=== PATIENT | female | born 1960 | race Hispanic/Latino ===

== ENCOUNTER → 2024-09-02 | Outpatient (CLI) | payer MEDICARE ==
[~2024-09-02] MED LIST: ondanSETRON 4MG INJ ONE
--- NOTE | 2024-09-02 16:21 | HMCIMG ---
MR SHOULDER RIGHT WO REASON: M25.511 Pain in right shoulder COMPARISON: None TECHNIQUE: Routine imaging protocol was performed in the axial, oblique sagittal and oblique coronal plane with T1, proton density, T2 and gradient recalled sequences. FINDINGS: There is severe AC joint degenerative changes. There is a large inferiorly directed osteophyte. There is marked thickening and inflammation of the musculotendinous portion of the rotator cuff. There is also a focal full-thickness tear present, not distracted. There are marked degenerative changes in the glenohumeral joint space evidenced by loss of articular cartilage in by subchondral cyst formation. There is no joint effusion. Biceps tendon appears unremarkable. There are no other focal osseous lesions. IMPRESSION: 1. Marked AC joint degenerative changes with an inferiorly directed ossified. 2. Marked thickening of the muscular tendinous portion of the rotator cuff, with increased signal consistent with tendinitis, there is also a full-thickness not distracted tear. 3. Marked glenohumeral joint space osteoarthritis as well.
== END | disposition home or self-care (01) ==
LOC: RAH 13:57
PROVIDERS: ATTEND Physician Assistant
DX: M19.011 Primary osteoarthritis, right shoulder (principal); M75.111 Incomplete rotator cuff tear or rupture of right shoulder, not specified as traumatic; M77.8 Other enthesopathies, not elsewhere classified
CPT/HCPCS: 73221; J2405

== ENCOUNTER 2025-05-12 06:52 | Day surgery (SDC) | payer MEDICARE ==
[2025-05-10 14:48] LABS: IMMATURE GRANULOCYTE ABSOLUTE 0.02 K/uL (0-1); NUCLEATED RED BLOOD CELLS 0.0 % (0.0-0.19); PLATELET COUNT (AUTO) 210 K/uL (130-400); RED BLOOD CELL COUNT(AUTO) 4.00 MIL/uL (4.00-5.50); RED CELL DISTRIBUTION WIDTH 13.2 % (11.0-15.5); WHITE BLOOD COUNT (AUTO) 5.9 K/uL (4.8-10.8)
[2025-05-10 14:56] LABS: APPEARANCE,URINE CLEAR (CLEAR); GLUCOSE, URINE (UA) NEGATIVE (NEGATIVE); LEUKOCYTE ESTERASE ,URINE NEGATIVE Leu/uL (NEGATIVE); NITRATE,URINE NEGATIVE (NEGATIVE); OCCULT BLOOD,URINE NEGATIVE (NEGATIVE)
[2025-05-10 15:02] LABS: CREATININE 0.6 mg/dL (0.5-1.0); GLOMERULAR FILTR. RATE CALC 98.0 mL/min (>90); GLUCOSE,RANDOM 135.0 mg/dL (70-105); SODIUM SERUM 140.0 mmol/L (136-145); UREA NITROGEN, BLOOD 14.0 mg/dL (7-18)
[2025-05-10 15:02] LABS: ADD UA MICROSCOPIC NO
[2025-05-10 15:34] LABS: INR 0.97 (0.85-1.15)
[2025-05-10 15:51] VITALS: BP 152/68; PULSE 83; RESP 18; TEMP 99.1
[~2025-05-12] VITALS: Ht 154.9 cm; Wt 85.1 kg
[2025-05-12] VITALS (18 sets, daily range): BP systolic 87–144; BP diastolic 46–75; PULSE 57–82; RESP 14–19; TEMP 96–97.4
[~2025-05-12 06:52] MED LIST changes: +0.9%NACL 1000ML 1,000 ML IV ONE; +AMIT25TA21 PO; +AMMO385C4 TP; +ATOR10TA69 PO; +DICL100G60 TP; +ELET20TA2 PO; +ERGO400C PO; +FLUT16H AD; +LISI1TAB51 PO; +METH-811 PO; +SERT-439 PO; +SOLI10TA PO; +TERB250T89 PO; +VERA240T95 PO; +meclizine PO; -ondanSETRON 4MG INJ ONE
[2025-05-12] MEDS ORDERED: MIDAZOLAM HCL 1 MG/ML 2ML VIAL ONE (09:21)
[2025-05-12] MEDS ORDERED: LIDOCAINE PF 100MG/5ML (2%) SYRINGE 5ML ONE (09:21)
[2025-05-12] MEDS ORDERED: SUCCINYLCHOLINE CHLORIDE 20 MG/ML 10 ML VIAL ONE (09:21)
[2025-05-12] MEDS ORDERED: GLYCOPYRROLATE 0.2 MG/ML 5 ML VIAL ONE ×2 (10:00→13:36)
[2025-05-12] MEDS ORDERED: HYDR-4060 PO (13:22)
[2025-05-12] MEDS ORDERED: NEOSTIGMINE METHYLSULFATE 1MG/ML IV ONE (13:24)
--- NOTE | 2025-05-12 13:30 | OP ---
Operative Note: DATE OF PROCEDURE: 05/12/25 SURGEON: PATY DIAMOND MD MANAGER ETL: [Xiomy Ruiz CFA] ANESTHESIA: [General anesthesia plus regional block] ANESTHESIOLOGIST/VACUUM CLEANER MECHANIC: [Zeeshan Sanderson CRNA] PREOPERATIVE DIAGNOSIS: [Right shoulder rotator cuff tear, labral tear, impingement] POSTOPERATIVE DIAGNOSIS: [Same] PROCEDURE: [Right shoulder arthroscopic anterior labral tear repair. Open subacromial decompression, partial distal clavicle resection and rotator cuff tear repair] ESTIMATED BLOOD LOSS: [50 mL] INDICATIONS: [The patient is a 65-year-old female that has a history of pain to the right shoulder that has not responded to conservative treatment. The MRI shows the above-mentioned findings she approved to proceed with surgery after failing conservative treatment. The procedure was explained, risks, benefits and possible complications and agreed to sign the consent form] DESCRIPTION OF PROCEDURE: [After adequate general anesthesia was achieved and regional block obtained the patient was placed in the beach chair position and the operative extremity was prepped and draped in the usual manner. After identification of the bony landmarks we proceeded to make a small incision in the posterior aspect of the shoulder subacromial area through the skin followed by blunt dissection with the arthroscopic trocar entering into the shoulder joint removing the trocar and applying the arthroscope into the sheath. After inflating the joint with fluid evaluation of the joint revealed normal subscapularis, biceps tendon and humeral articular surface. The supraspinatus showed changes compatible with a tear and the infraspinatus was normal. The glenoid anterior rim surface had chondral damage associated with a labral tear. After applying an anterior cannula after a small incision was made in the anterior shoulder we were able to insert a 2.7 labral anchor in the anterior glenoid rim an after several attempt we pass one end of the suture around the labrum and then the suture was tied bringing the labrum down and finishing the repair. We then proceeded to remove the arthroscope from the joint and after reapplying the trocar into the subacromial space. Once again we switch the trocar for the arthroscope and evaluation of the subacromial space revealed significant amount of bursal tissue and a second incision was made in the lateral aspect of the subacromial area through the skin and then with a blunt trocar we proceeded to enter this area followed by application of the electrocautery proceeding then to remove most of the bursal tissue opening the subacromial space noticing that there was obvious impingement due to the acromial hypertrophy and an acromioclavicular joint spur present, the AC joint being adequate in space. We then made a third incision anteriorly at the level of the acromioclavicular joint through the skin and then bluntly we entered with a cannula into the subacromial area at the level of the acromioclavicular joint. Through this incision we then inserted a mild diameter cannula. With the use of the shaver and through the lateral cannula we proceeded to continue cleaning the subacromial space and we finally expose the rotator cuff and identified the tear of the supraspinatus. Once we cleared the bursal tissue from the tear we proceeded then to use the shaver to clean the footprint of the supraspinatus insertion and then we inserted a large bore cannula through the lateral portal and then proceeded to repair the tear, which was noted to be bilaminar, and attempts to pass the suture through the thickness of this tissue was difficult and after several attempts I aborted the arthroscopic procedure and switched the procedure to an open technique. An inch and a half incision was then made in the anterolateral aspect of the acromion and dissection was carried through the subcutaneous tissue, the fibers of the deltoid being then spread longitudinally entering the subacromial space. the deltoid fibers were partially detached from the acromion to increase the exposure. With the use of a bur we proceeded then to remove the inferior spur of the acromion to open the space and then we palpated the undersurface of the clavicle where the 2nd spur was identified and also removed. The tissue was then given to the supraspinatus tear that was easily visualized. I then applied a horizontal mattress stitch to the supraspinatus tendon with a tape suture. The 2 ends of the suture were then threaded into a 6.5 peek multi-fix anchor from [employer] and then we brought it into the superolateral aspect of the tuberosity and Into the bone while holding tension and reducing the tear down to its insertion site until it reached the threaded portion and we then proceeded to screw the rest of the anchor into the bone. Once the anchor was buried we then proceeded to disengage the director of vocational guidance and cut the ends of the suture. Two extra sutures were passed with a single manner at each end of the tear through the full-thickness of the tendon and through the bone of the tuberosity and reinforced the repair at each side. Evaluation of the repair revealed that this has been adequate. The wound was copiously irrigated and the repair was checked with range of motion nurse it to be stable. The small arthroscopic incisions were then closed with 2-0 Monocryl inverted stitches followed by application of Dermabond to seal the incisions. The anterior lateral incision was closed with a approximation of the fibers of the deltoid with 1. Vicryl simple stitches the most proximal passing them through the bone of the acromion. Then in the subcutaneous tissue was closed also with 2-0 Monocryl and the skin with 3-0 Monocryl subcuticularly and the covered with Dermabond. All the wounds were then covered with a Telfa dressings and OpSite's. The drapes were then removed and the patient was placed in an arm sling. The bed was placed in the supine position and the patient was transferred to a stretcher and taken to recovery room for follow-up by anesthesia. There were no complications during the procedure.] PATY DIAMOND MD May 12, 2025 13:30
== END 2025-05-12 16:32 | disposition home or self-care (01) ==
LOC: DAH 06:52 → EDSTATUS 07:30 → DAH 16:32
PROVIDERS: ATTEND Orthopaedic Surgery
DX: M75.121 Complete rotator cuff tear or rupture of right shoulder, not specified as traumatic (principal); M19.90 Unspecified osteoarthritis, unspecified site; M25.511 Pain in right shoulder; M75.41 Impingement syndrome of right shoulder; Z79.01 Long term (current) use of anticoagulants; I10 Essential (primary) hypertension; E11.9 Type 2 diabetes mellitus without complications; E66.9 Obesity, unspecified; Z68.32 Body mass index [BMI] 32.0-32.9, adult; Z79.899 Other long term (current) drug therapy
CPT/HCPCS: 80048; 85025; 85610; 87086; 81003; 36415; 87641; 29806; 64415; 23130; 23140; 23412; A4663; J7030 ×2; J2270; J3490 ×4; J2003; J0169 ×2; J2250; J2704; J2405; J2710; J2371; J0690; A6204; C1713 ×2; A4930; A5120; A4215; A4213; A4222; A4221; A4216; A4223 ×2; J0330; J3010

== ENCOUNTER → 2025-08-25 | Outpatient (CLI) | payer MEDICARE ==
[~2025-08-25] MED LIST changes: -0.9%NACL 1000ML 1,000 ML IV ONE; +HYDR-4060 PO
--- NOTE | 2025-08-28 09:10 | HMCIMG ---
EXAM: CR Lumbar Spine, 4 View. CLINICAL HISTORY: RADICULOPATHY, LUMBAR REGION COMPARISON: None provided. FINDINGS: BONES: No acute fracture or aggressive appearing osseous lesion. ALIGNMENT: Alignment is within normal limits. Mild levoscoliosis DISCS / DEGENERATIVE CHANGES: Spondylotic changes with mild degenerative disc disease from L2 to S1 level. Facet arthropathy at L4-L5 and L5-S1 levels. SOFT TISSUES: The soft tissues are unremarkable. IMPRESSION: No acute lumbar spine abnormality evident. Spondylotic changes with mild degenerative disc disease from L2 to S1 level. Facet arthropathy at L4-L5 and L5-S1 levels. Mild levoscoliosis /[facility]
== END | disposition home or self-care (01) ==
LOC: RAH 12:59
PROVIDERS: ATTEND Physical Medicine & Rehabilitation
DX: M51.17 Intervertebral disc disorders with radiculopathy, lumbosacral region (principal); M47.27 Other spondylosis with radiculopathy, lumbosacral region; M99.05 Segmental and somatic dysfunction of pelvic region; M41.86 Other forms of scoliosis, lumbar region
CPT/HCPCS: 72110